=== PATIENT | male | born 1985 | race Caucasian/White ===

== ENCOUNTER 2024-03-17 05:26 | Inpatient (IN) | payer SELFPAY ==
[2024-03-17] VITALS (25 sets, daily range): BP systolic 131–200; BP diastolic 79–141; PULSE 65–87; RESP 12–22; TEMP 35.8–36.7; O2SAT 94–100; BMI 35.6; BMI 36.4
--- NOTE | 2024-03-17 05:54 | EKG12_ITS ---
Test Reason : CP Blood Pressure : / mmHG Vent. Rate : 075 BPM Atrial Rate : 075 BPM P-R Int : 148 ms QRS Dur : 084 ms QT Int : 350 ms P-R-T Axes : -10 045 049 degrees QTc Int : 390 ms Normal sinus rhythm Normal ECG Confirmed by AFIA BORDEN, SANDY ([id number]), editorial assistant JASON BANSAL ([id number]) on 03/23/2024 1:33:01 PM Referred By: QAMAR Confirmed By:SABRINA OREILLY MD
--- NOTE | 2024-03-17 05:54 | CT_ITS ---
INDICATION: chest pain / ? Dissection EXAMINATION: CTA CHEST, ABDOMEN AND PELVIS WITH CONTRAST - TECHNIQUE: A CTA of the chest, abdomen, and pelvis is obtained with sagittal and coronal reconstructed MIP views. Three-dimensional surface rendered sequence of the thoracic and abdominal aorta was obtained. A radiation dose optimization technique was used for this scan. 100 mL of Isovue-370. Oral contrast: None. COMPARISON: None. FINDINGS: CT CHEST: THORACIC AORTA: No atheromatous disease, no aneurysmal changes or dissection. ABDOMINAL AORTA: No aneurysm or dissection. No significant atheromatous disease. The iliac arteries are unremarkable. LUNGS: The lungs are well-expanded without acute or chronic changes. No effusions or pneumothorax. MEDIASTINUM: The thyroid gland is normal. No mediastinal or hilar adenopathy. HEART: Heart is normal size. No pericardial effusion. No CAD. CT ABDOMEN AND PELVIS: LIVER: The liver enhances homogeneously. No masses identified. GALLBLADDER: The CBD is normal. Normal gallbladder. SPLEEN: Normal. PANCREAS: No masses or inflammation. ADRENAL GLANDS: Normal. KIDNEYS AND URETERS: The kidneys both enhance appropriately. There are normal size and shape. No hydronephrosis or nephrolithiasis. No renal masses or cysts. STOMACH: Normal. SMALL BOWEL: No abnormal distention of the small bowel. MESENTERY: No mesenteric inflammation. No ascites. COLON: Scattered sigmoid diverticula. The colon otherwise is normal. There is a large fatty ileocecal valve. APPENDIX: The appendix is visualized and normal. IVC: Normal. RETROPERITONEUM: No retroperitoneal lymphadenopathy. PELVIC STRUCTURES: Normal bladder. SOFT TISSUES ABDOMEN: Small left inguinal hernia containing fat. SOFT TISSUE CHEST: The extrathoracic soft tissues are normal. BONES: No fractures or significant degenerative disease. CT/CTA Chst, Abd, Pel W and/or WO IMPRESSION: Normal contrast-enhanced CT of the chest. Normal contrast-enhanced CT of the abdomen and pelvis. Electronically Signed: Delio Kang MD at 8:22 EDT ,
[2024-03-17] MEDS: Labetalol (Prefilled) 20 MG/4 ML IV (06:01)
[2024-03-17] MEDS: 0.9% Normal Saline (1000mL) 1,000 ML 999 ML IV (06:01)
[2024-03-17 06:06] LABS: Partial Thromboplast Time 22.9 Seconds (24.1-36.2); Prothrombin Time (Protime)PT. 13.3 SECONDS (11.7-14.9)
--- NOTE | 2024-03-17 06:16 | ED.RN ---
Patient's brother Jose J contact number [phone]
[2024-03-17 06:23] LABS: Anion Gap 7 (5-15); BUN 9 mg/dL (7-18); BUN/Creat Ratio 8.5 RATIO (10-20); Calcium,Total 8.8 mg/dL (8.5-10.1); Chloride 107 mmol/L (98-107); Creatinine, Serum 1.06 mg/dL (0.70-1.30); EST Glomerular Filtration Rate 82 mL/min (>60); Est Glom Filt Rate - Afr Amer 99 mL/min (>60); Estimated Creatinine Clearance 116.35 ml/min; Glucose 106 mg/dL (74-106); Magnesium 1.9 mg/dL (1.6-2.6); Potassium 3.5 mmol/L (3.5-5.1); Sodium Level 140 mmol/L (136-145); Troponin-I HS 24 pg/mL (3.0-78.0)
[2024-03-17] MEDS: Nitroglycerin SL (ED/IMG/CATH) 0.4 MG TABLET SL ×3 (06:38→06:54)
--- NOTE | 2024-03-17 06:40 | EX.ED.DYSGE1 ---
HPI History of Present Illness Chief Complaint: Chest Pain Informant: patient Narrative Narrative: Patient is a 38-year-old male with past medical history of hypertension as well as GERD and low testosterone. He reports he takes omeprazole as well as testosterone supplementation but does not take any type of hypertensive medication as he lost his insurance. He states that he woke up this morning as he normally does and got ready for work and reports he was in the car driving to work when he suddenly developed left-sided upper chest discomfort with radiation to his arm. He states the pain is more sharp and stabbing in nature. He reported that it did cause mild shortness of breath. He denies any nausea vomiting or diaphoresis. He denies any previous history of cardiovascular disease. He denies any history of DVT/PE. He denies any history of illicit drug use. He reports based on the sudden onset of his symptoms and concern this could be cardiovascular nature he presents to the ER for evaluation. Of note he does state upon arrival to the ER his symptoms seem to have improved spontaneously but have not resolved [facility] Medical History HTN (hypertension) Home Medications amlodipine 5 mg tablet 5 mg PO DAILY 30 days #30 tabs 03/17/24 [Rx Last Taken Unknown] omeprazole 20 mg capsule,delayed release 20 mg PO DAILY 03/17/24 [History Last Taken Unknown] Allergy/AdvReac Type Severity Reaction Status Date / Time No Known Allergies Allergy Verified 03/17/24 05:26 Social History Smoking Status: Never smoker [facility] ED Constitutional Constitutional ED: Denies chills or fever(s) Eyes Eyes: Denies blurry vision, change in vision or diplopia ENT ENT ED: Denies sore throat Cardiovascular Cardiovascular: Reports chest pain; Denies palpitations or racing heartbeat Respiratory/Chest Respiratory/Chest: Denies cough or dyspnea Gastrointestinal Gastrointestinal: Reports nausea; Denies abdominal pain, diarrhea or vomiting Genitourinary Genitourinary ED: Denies dysuria Musculoskeletal Musculoskeletal: Denies back pain or neck pain Integumentary Denies rash Neurologic Neurologic: Denies headache(s), paresthesias or weakness Hematologic/Lymphatic Hematologic/Lymphatic: Denies easy bleeding or easy bruising EXAM Physical Exam Const Vital Signs: 03/17/24 05:26 03/17/24 05:31 03/17/24 05:32 Temperature 96.5 F L Temperature Source Temporal Pulse Rate 76 Respiratory Rate 15 Respiratory Effort Normal Blood Pressure 196/131 H 200/141 H Blood Pressure Mean 152 160 Pulse Ox 99 03/17/24 06:14 03/17/24 06:38 03/17/24 06:44 Temperature Temperature Source Pulse Rate 85 77 78 Respiratory Rate 17 Respiratory Effort Blood Pressure 174/126 H 186/123 H 154/110 H Blood Pressure Mean 142 Pulse Ox 98 03/17/24 06:54 Temperature Temperature Source Pulse Rate 81 Respiratory Rate Respiratory Effort Blood Pressure 161/105 H Blood Pressure Mean Pulse Ox Positive well nourished and well developed General Appearance ED: well developed; Negative for pallor HEENT HEENT Narrative: Normocephalic atraumatic Eyes PERRL and EOMs intact bilaterally General Eye ED: Negative for pale conjunctiva or scleral icterus Neck supple Neck Narrative: No nuchal rigidity or meningeal signs Chest Wall palpation of chest normal Chest Narrative: No bony deformity or crepitance of the chest wall No reproducible pain with palpation Resp normal respiratory effort and clear to auscultation bilaterally Resp Narrative: No nasal flaring retractions tachypnea or accessory muscle use Cardio regular rate and regular rhythm Rate: other Other Details: Heart is regular rate and rhythm without murmurs rubs or gallop Radial and carotid pulses are equal and symmetric GI normal to inspection, nondistended, normoactive bowel sounds, non-tender, non-distended and no masses GI Narrative: Abdomen is soft nontender nondistended with normal active bowel sounds No voluntary guarding or rigidity No pulsatile mass or fluid wave Auscultation: normoactive bowel sounds Palpation: soft Extremity normal to inspection Extremity Narrative: No asymmetric edema no pitting edema negative Homans' sign bilaterally Neuro oriented x3, CN's II-XII intact bilaterally and no sensory deficits noted Sensorium / Orientation: alert Motor Exam: strength 5/5 throughout Psych mental status grossly normal Skin no rashes or lesions noted, no wounds and skin turgor normal General Skin Exam: Negative for jaundice or pallor MDM MDM MDM Narrative Medical decision making narrative: Patient presented to the ER hypertensive but otherwise with stable vital. He reported sudden onset of left-sided chest discomfort with radiation into the left arm. He stated the pain was more sharp in nature. He denied any recent trauma or excessive activity. He does have mild risk factors for cardiovascular disease such as a man of the age of 38 as well as hypertension and occasional nicotine use. He denied any history of DVT/PE but he did recently fly to [place] from [place] and takes testosterone/hormone. Therefore there is concern that he could be having acute coronary syndrome versus DVT/PE versus dissection. Secondary to this a CTA of the chest abdomen pelvis was obtained as well as basic blood work. The patient's initial troponin is normal at 24. His EKG does not show any obvious signs of ischemia/STEMI. My interpretation of the CTA does not reveal a saddle PE or obvious dissection. Therefore there is concern that the patient's pain could just be related to accelerated hypertension and potential vessel spasm secondary to this. Patient was given labetalol without any symptom improvement so then a nitro trial was performed and did lower the patient's blood pressure to approximate 150/110 which is at the 25% reduction rate and for in the ER At this time the patient's delta troponin is still pending and therefore his case will be signed out to the day physician Dr. Hull I do feel that if CTA is officially read as no PE or dissection and that his troponins remain normal as his blood pressure has reduced the except to ER value of 25% that he can be given oral medication and discharged home History & Record Review Discussion w/independent historian: Patient Lab Data Attestation: I reviewed the patient's lab results. Labs: Laboratory Results - last 24 hr 03/17/24 05:47 WBC 7.3 RBC 5.51 Hgb 16.2 Hct 50.4 MCV 91.5 MCH 29.4 MCHC 32.1 RDW Std Deviation 50.2 H RDW Coeff of Zan 14.9 H Plt Count 310 MPV 9.5 Immature Gran % (Auto) 0.700 Neut % (Auto) 57.2 Lymph % (Auto) 28.7 [place] % (Auto) 8.7 Eos % (Auto) 3.7 Baso % (Auto) 1.0 Absolute Neuts (auto) Not Reportable PT 13.3 INR 1.0 APTT 22.9 L Sodium 140 Potassium 3.5 Chloride 107 Carbon Dioxide 26.0 Anion Gap 7 BUN 9 Creatinine 1.06 Estim Creat Clear Calc 116.35 Est GFR (MDRD) Af Amer 99 Est GFR (MDRD) Non-Af 82 BUN/Creatinine Ratio 8.5 L Glucose 106 Calcium 8.8 Magnesium 1.9 Troponin I High Sens 24 Discharge Plan Triage Chief Complaint: Chest Pain ED Provider: Mark Richardson Dx/Rx/DC Orders Clinical Impression: Nonspecific chest pain, Accelerated hypertension Prescriptions: New amlodipine 5 mg tablet 5 mg PO DAILY 30 Days Qty: 30 2RF No Action omeprazole 20 mg capsule,delayed release(DR/EC) 20 mg PO DAILY Primary Care Provider: Care Physician,No Primary Referrals: Skinny Chapman MD [Med Staff - Active Staff] - Care Physician,No Primary [Primary Care Provider] -
[2024-03-17] MEDS: Acetaminophen 500 MG Tablet 1000 MG PO (06:50)
[2024-03-17 06:56] LABS: Hematocrit 50.4 % (40-54); Hemoglobin 16.2 g/dL (13.0-16.5); Mean Corp Hgb Conc 32.1 g/dL (32-36); Mean Corpuscular Hgb 29.4 pg (27.0-32.0); Mean Corpuscular Volume 91.5 fL (80-94); Platelet Count 310 K/mm3 (150-450); RBC Distribution Width CV 14.9 % (11.6-14.6); RBC Distribution Width SD 50.2 fl (35.1-43.9); Red Blood Count 5.51 M/mm3 (4.6-6.2); White Blood Count 7.3 K/mm3 (4.4-11.0)
[2024-03-17 06:57] LABS: Eosinophils% 3.7 % (0-5); Lymphocyte % 28.7 % (19-41); Mean Platelet Vol. 9.5 fl (6.2-12.0); Monocyte% 8.7 % (0-10); Neutrophil % 57.2 % (47-70)
[2024-03-17 06:58] LABS: Basophil# 0.07 X10^3/uL; Eosinophil# 0.27 X10^3/uL; Lymphocyte # 2.08 X10^3/ul (0.83-4.51); Monocyte# 0.63 X10^3/uL; Neutrophil # 4.15 X10^3/uL (2.7-7.7)
[2024-03-17 08:16] LABS: Troponin-I HS 561 pg/mL (3.0-78.0)
--- NOTE | 2024-03-17 08:31 | EKG12_ITS ---
Test Reason : REPEAT Blood Pressure : / mmHG Vent. Rate : 065 BPM Atrial Rate : 065 BPM P-R Int : 146 ms QRS Dur : 084 ms QT Int : 366 ms P-R-T Axes : -17 033 019 degrees QTc Int : 380 ms Normal sinus rhythm Normal ECG Confirmed by AFIA BORDEN, SANDY ([id number]), staff editor JASON BANSAL ([id number]) on 03/23/2024 1:33:16 PM Referred By: Confirmed By:SABRINA OREILLY MD
[2024-03-17] MEDS: TICAGRELOR 90 MG TABLET 180 MG PO (09:21)
[2024-03-17] MEDS: Heparin 10,000 UNITS/10 ML Vial 4000 UNITS IV (09:22)
[2024-03-17] MEDS: Nitroglycerin Infusion 250 ML 3 MG CONT INF (09:22)
--- NOTE | 2024-03-17 09:26 | ED.RN ---
PT VERIFIED. UNABLE TO SCAN THE ASPIRIN DUE TO BEING LOCKED OUT BY LSPARR RN. 325 ASA GIVEN AT [id number]
--- NOTE | 2024-03-17 11:36 | ECHOD_ITS ---
Reason For Study: NSTEMI Procedure This was a 2D Doppler, Color Flow transthoracic echocardiogram. Exam performed portable in ICU/CCU. Left Ventricle Normal LV size. The estimated ejection fraction is 50-55 %. No evidence for diastolic dysfunction. No regional wall motion abnormalities noted. Right Ventricle Normal RV size. Normal systolic function. Atria Normal left atrium. Normal right atrium. No doppler evidence for ASD. Mitral Valve There is no mitral valve stenosis. Trivial mitral valve insufficiency. Tricuspid Valve There is no tricuspid stenosis. Trivial tricuspid valve insufficiency. Unable to estimate RV systolic pressure due to insufficient tricuspid regurgitant envelope. Aortic Valve Trisinus/trileaflet aortic valve. There is no aortic stenosis. No aortic valve insufficiency. Pulmonic Valve There is no pulmonic valvular stenosis. No pulmonic valve insufficiency. Great Vessels Normal aortic root. Pericardium/Pleural No pericardial effusion. MMode/2D Measurements & Calculations LVIDd: 5.2 cm IVSd: 1.5 cm Ao root diam: 3.6 cm LVIDs: 3.8 cm LVPWd: 1.0 cm LA dimension: 4.2 cm RVDd: 4.0 cm FS: 27.0 % LAV(MOD-bp): 66.9 ml LA A4 area: 23.6 cm2 RA A4 area: 19.7 cm2 LAV(MOD-bp) Indexed: 29.2 ml/m2 LAV(MOD-sp2): 51.3 ml LAV(MOD-sp4): 76.5 ml TAPSE: 2.3 cm Time Measurements MV dec time: 0.20 sec Doppler Measurements & Calculations MV E max wyatt: 77.0 cm/sec Lat Peak E' Wyatt: 9.3 cm/sec Med Peak E' Wyatt: 9.1 cm/sec MV A max wyatt: 80.8 cm/sec E/E' lat: 8.3 E/E' med: 8.5 MV E/A: 0.95 MV V2 max: 96.9 cm/sec MV P1/2t max wyatt: 92.8 cm/sec Ao V2 max: 131.0 cm/sec MV max P.8 mmHg MV P1/2t: 74.7 msec Ao max P.9 mmHg MV V2 mean: 60.7 cm/sec Ao V2 mean: 93.9 cm/sec MV mean P.7 mmHg MV dec slope: 363.9 cm/sec2 Ao mean P.0 mmHg MV V2 VTI: 26.4 cm MVA(P1/2t): 2.9 cm2 Ao V2 VTI: 27.2 cm AV (velocity ratio): 0.85 LV V1 max: 109.5 cm/sec PA V2 max: 82.6 cm/sec TR max wyatt: 177.9 cm/sec LV V1 max P.8 mmHg PA V2 mean: 56.7 cm/sec TR max P.7 mmHg LV V1 mean P.8 mmHg LV V1 mean: 79.4 cm/sec LV V1 VTI: 23.1 cm ECHO/Echo Complete Interpretation Summary The estimated ejection fraction is 50-55 %. No evidence for diastolic dysfunction. Trivial mitral valve insufficiency. Ordering Physician: William Lugo Performed By: Constantine Daugherty RCS
--- NOTE | 2024-03-17 11:36 | EKG12_ITS ---
Test Reason : post cath ekg Blood Pressure : / mmHG Vent. Rate : 071 BPM Atrial Rate : 071 BPM P-R Int : 152 ms QRS Dur : 078 ms QT Int : 358 ms P-R-T Axes : -19 036 024 degrees QTc Int : 389 ms Normal sinus rhythm Normal ECG Confirmed by GUANACO BORDEN, AYANNA ([id number]), supervising film or videotape editor JASON BANSAL ([id number]) on 03/26/2024 11:41:59 AM Referred By: Elif Confirmed By:AYNANA BLANC MD
--- NOTE | 2024-03-17 11:49 | CRPHASE1 ---
Patient Communication Patient Information Former Patient:: Phase I PHII Cardiac Rehab Discussed with Patient:: Yes Guide to Cardiac Rehab Given to Patient:: Yes Cardiac Rehab Facility Choice List Given to Patient:: Yes Communication to Cardiac Rehab Forming Department Supervisor:: María Elena Asencio Sessions:: 36 sessions - 3 days/wk, 12 weeks Medical/Surgical History Medical History IN:: Yes Angina:: No CAD:: Yes Congestive Heart Failure: Cardiomyopathy:: No Valve Disease/Replacement:: No Pulmonary:: No COPD:: No Asthma:: No ANA:: No Diabetes:: No Diabetes Type I:: No Diabetes Type II:: No Hypertension:: Yes Dyslipidemia:: No Arrhythmias:: No EPS:: No CVA/TIA: CEA:: No PE:: No DVT:: No PVD:: No PAD:: No Arthritis:: No GI:: No GERD:: No Cancer:: No Renal:: No Thyroid:: No Depression:: No Anxiety:: No Surgical History CABG: No PTCA:: Yes ICD:: No Pacemaker:: No Orthopedic:: No Cardiac Rehabilitation Info Program Information Cardiac Rehabilitation Program Information: Cardiac Rehab The cardiac rehab team at [facility] consists of highly skilled exercise physiologists, nurses, respiratory therapists and physicians working together with you. Our purpose is to help you have a full recovery and achieve the goals you set for yourself. Over the years many of our patients have returned to activities they assumed they would never do again! We can help restore your confidence and motivation to make lifestyle changes that can have a significant impact on your health and quality of life! We can help answer questions and concerns you may have about exercise, lifestyle, medications, diet, stress and anxiety which are common following a hospitalization. WE monitor ECG and vital signs during exercise and discuss your progress with you and report to your physician(s). Cardiac Rehab is proven to help reduce readmissions, improve functional capacity and lower recurrence of problems with your heart. Our Cardiac Rehab program is Certified by the [place] [employer] Pulmonary [employer] (AACVPR) and Accredited by the [place] [employer] through our [facility]. You can contact us at . We invite you to call us with your questions or to get started in our program. If you have other questions or concerns be sure to ask your physician/provider during your follow-up visit. WE look forward to seeing you!
--- NOTE | 2024-03-17 11:51 | CRPH1.INSTRU ---
General Education Discussed with Patient CAD and cardiac anatomy and function:: Patient communicates acknowledgment Explanation of diagnoses and procedures:: Patient communicates acknowledgment Sign/Symptoms of PR:: Patient communicates acknowledgment Antiplatelet therapy: Patient communicates acknowledgment Proper use of NTG-SL: Patient communicates acknowledgment Emergency procedures and activation of EMS: Patient communicates acknowledgment Compliance of all prescribed medications: Patient communicates acknowledgment Dyslipidemia Recommendations Recommendations Include:: Lipid profile not available Response Code Dyslipidemia Response Code:: Patient communicates acknowledgment Overweight/Obesity Risk Factors Patient Overweight/Obesity Risk Factors Are:: Obesity - > or = 30 Recommendations Recommendations Include:: Reduced calorie diet Response Code Overweight/Obesity:: Patient communicates acknowledgment Hypertension Recommendations Recommendations Include:: Maintain BP <130/85, Decrease/maintain normal body weight and Moderation of ETOH Response Code Hypertension:: Patient communicates acknowledgment Heart Disease Risk Factors Patient Heart Disease Risk Factors Are:: Previous cardiac event Recommendations Recommendations Include:: Educated family members of their risk and Educated family members of importance of prevention of heart disease Response Code Heart Disease Response Code:: Patient communicates acknowledgment Diabetes Risk Factors Patient Diabetes Risk Factors Are:: No documented hx of diabetes Metabolic Syndrome Risk Factors Patient Metabolic Syndrome Risk Factors Are [3 of 5]:: Waist circumference > 35 [female] or 40 [male] and Hypertension Recommendations Recommendations Include:: Reinforce compliance to risk factor modifications and Encouraged follow-up with Primary Care Physician Response Code Metabolic Syndrome Response Code:: Patient communicates acknowledgment Sedentary Risk Factors Patient Sedentary Risk Factors Are:: Lack of regular exercise Response Code Sedentary Response Code:: Patient communicates acknowledgment Stress Risk Factors Patient Stress Risk Factors Are:: Patient denies stress as a risk factor Recommendations Recommendations Include:: Identification of stressors, and assessment of coping skills and Stress management techniques Response Code Stress Response Code:: Patient communicates acknowledgment
--- NOTE | 2024-03-17 12:00 | NURSING ---
Per Vikki in analytical lab technician report, integrilin bolus doses x2 given and drip started. When patient arrived to floor, integrilin gtt running at 17.2 ml/hr.
[2024-03-17] MEDS: Carvedilol 12.5 MG Tablet PO ×2 (12:24→21:06)
[2024-03-17] MEDS: 0.9% Normal Saline (1000mL) 1,000 ML 50 ML IV (12:24)
[2024-03-17] MEDS: Pantoprazole Sodium 20 MG Tablet PO (12:24)
[2024-03-17] MEDS: Aspirin 325 MG Tablet PO (12:36)
[2024-03-17] MEDS: Lisinopril 10 MG Tablet PO ×2 (12:36→17:38)
--- NOTE | 2024-03-17 12:42 | NURSING ---
called labor relations supervisor to locate Dr. Asencio regarding Integrilin orders, per Adriana labor relations supervisor RN, Dr. Asencio not in labor relations supervisor.
[2024-03-17] MEDS: EPTIFIBATIDE 75 MG/100 ML VIAL 18 MG CONT INF ×2 (15:19→21:02)
--- NOTE | 2024-03-17 15:37 | PCM.HP.STD ---
[facility] - General General Date of Admission: 03/17/24 Date of Service: 03/17/24 Chief Complaint: Left-sided chest pain with radiation to left arm started about 5 AM HPI Narrative CRISTIAN WILLIS, is a 38 M with history of uncontrolled hypertension came to ED when he felt chest pressure left side with radiation to left arm while he was getting ready for work. 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 Then he came to ED pain was persistent till nitro drip was started and brought to [facility] Of Human Resources. Prior to that patient also complained of mild shortness of breath denied nausea vomiting diaphoresis or palpitation. No prior history of similar chest pain or pressure or [place]. History of hypertension on amlodipine 5 mg daily. In ED patient had twelve-lead EKG which shows normal sinus rhythm at 75 bpm, slight ST segment elevation in inferior leads with reciprocal changes in V4 and V5. First troponin negative but second troponin went high. Patient was started on IV heparin drip given aspirin and taken to [facility] Of Human Resources. Patient also had CTA chest and pelvis and aortic dissection/aneurysm or PE ruled out. Family history: Patient's mother has hypertension. His father had a strokes and [place]. [facility], LAT[facility] Medical History HTN (hypertension) Smoking Home Medications amlodipine 5 mg tablet 5 mg PO DAILY 30 days #30 tabs 03/17/24 [Rx Last Taken Unknown] omeprazole 20 mg capsule,delayed release 20 mg PO DAILY 03/17/24 [History Last Taken Unknown] Allergy/AdvReac Type Severity Reaction Status Date / Time No Known Allergies Allergy Verified 03/17/24 05:26 Social History Smoking Status: Current some day smoker tobacco type: cigarettes ROS ROS Narrative Constitutional: Denies chronic fatigue and weakness. No fever. HEENT: Reports systems reviewed and no addt'l complaints, except as documented Respiratory/Chest: As described in HPI. No chronic lung disease/COPD CVS: As described in HPI. Gastrointestinal: Denies coffee ground emesis, hematemesis or vomiting Genitourinary: Denies burning urination or new urinary tract symptoms Musculoskeletal: Denies acute joint pain or limited range of motion. No acute injury Neurologic: Denies seizure-like symptoms. skin: No ulcer. No rash Endocrinology: Reports systems reviewed and no addt'l complaints, except as documented Hematologic/Lymphatic: Reports systems reviewed and no addt'l complaints, except as documented Rest 14 ROS are negative except as mentioned in HPI Vital Signs Vital Signs Vital Signs: 03/17/24 05:26 03/17/24 05:31 03/17/24 05:32 Temperature 96.5 F L Temperature Source Temporal Pulse Rate 76 Respiratory Rate 15 Respiratory Effort Normal Blood Pressure 196/131 H 200/141 H Blood Pressure Mean 152 160 Blood Pressure Source Blood Pressure Position Blood Pressure Location Pulse Ox 99 Oxygen Delivery Method 03/17/24 06:14 03/17/24 06:38 03/17/24 06:44 Temperature Temperature Source Pulse Rate 85 77 78 Respiratory Rate 17 Respiratory Effort Blood Pressure 174/126 H 186/123 H 154/110 H Blood Pressure Mean 142 Blood Pressure Source Blood Pressure Position Blood Pressure Location Pulse Ox 98 Oxygen Delivery Method 03/17/24 06:54 03/17/24 07:00 03/17/24 08:00 Temperature Temperature Source Pulse Rate 81 65 69 Respiratory Rate 16 17 Respiratory Effort Blood Pressure 161/105 H 151/103 H 153/102 H Blood Pressure Mean 119 119 Blood Pressure Source Blood Pressure Position Blood Pressure Location Pulse Ox 96 98 Oxygen Delivery Method Room Air 03/17/24 09:00 03/17/24 09:22 03/17/24 09:31 Temperature 98.1 F Temperature Source Pulse Rate 72 74 80 Respiratory Rate 19 H 18 Respiratory Effort Blood Pressure 156/103 H 160/106 H 166/107 H Blood Pressure Mean 120 124 126 Blood Pressure Source Blood Pressure Position Blood Pressure Location Pulse Ox 94 98 Oxygen Delivery Method Room Air 03/17/24 12:00 03/17/24 11:45 03/17/24 12:15 Temperature 97.0 F L Temperature Source Temporal Pulse Rate 86 78 78 Respiratory Rate 22 H 19 H 18 Respiratory Effort Blood Pressure 147/98 H 131/104 H 138/98 H Blood Pressure Mean 114 113 111 Blood Pressure Source Monitor Monitor Monitor Blood Pressure Position Semi-Fowlers Semi-Fowlers Semi-Fowlers Blood Pressure Location Left Arm Left Arm Left Arm Pulse Ox 98 99 97 Oxygen Delivery Method Room Air Room Air Room Air 03/17/24 12:30 03/17/24 12:45 03/17/24 13:00 Temperature Temperature Source Pulse Rate 76 76 77 Respiratory Rate 16 18 12 Respiratory Effort Blood Pressure 147/98 H 143/98 H 153/99 H Blood Pressure Mean 114 113 117 Blood Pressure Source Monitor Monitor Monitor Blood Pressure Position Semi-Fowlers Semi-Fowlers Semi-Fowlers Blood Pressure Location Left Arm Left Arm Left Arm Pulse Ox 100 100 98 Oxygen Delivery Method Room Air Room Air Room Air 03/17/24 13:15 Temperature Temperature Source Pulse Rate 87 Respiratory Rate 17 Respiratory Effort Blood Pressure 141/98 H Blood Pressure Mean 112 Blood Pressure Source Monitor Blood Pressure Position Semi-Fowlers Blood Pressure Location Left Arm Pulse Ox 98 Oxygen Delivery Method Room Air Weight Weight: 253 lb 15.56 oz Body Mass Index (BMI) 36.4 Results Lab / Micro Data 03/17/24 05:47 03/17/24 05:47 Labs: Laboratory Results - last 24 hr 03/17/24 05:47: WBC 7.3, RBC 5.51, Hgb 16.2, Hct 50.4, MCV 91.5, MCH 29.4, MCHC 32.1, RDW Std Deviation 50.2 H, RDW Coeff of Zan 14.9 H, Plt Count 310, MPV 9.5, Immature Gran % (Auto) 0.700, Neut % (Auto) 57.2, Lymph % (Auto) 28.7, [place] % (Auto) 8.7, Eos % (Auto) 3.7, Baso % (Auto) 1.0, Absolute Neuts (auto) Not Reportable, PT 13.3, INR 1.0, APTT 22.9 L, Sodium 140, Potassium 3.5, Chloride 107, Carbon Dioxide 26.0, Anion Gap 7, BUN 9, Creatinine 1.06, Estim Creat Clear Calc 116.35, Est GFR (MDRD) Af Amer 99, Est GFR (MDRD) Non-Af 82, BUN/Creatinine Ratio 8.5 L, Glucose 106, Calcium 8.8, Magnesium 1.9, Troponin I High Sens 24 03/17/24 07:45: Phosphorus 3.0, Troponin I High Sens 561 H* Imaging Radiology Impression Chest/Abdomen/Pelvis CTA 03/17/24 05:54 IMPRESSION: Normal contrast-enhanced CT of the chest. Normal contrast-enhanced CT of the abdomen and pelvis. Electronically Signed: Delio Kang MD at 8:22 EDT , Assessment & Plan Assessment/Plan (1) Accelerated hypertension: (2) NSTEMI, initial episode of care: PLAN: Plan This is 38-year-old gentleman came to ED with anginal quality chest pain left-sided with radiation to left arm and high troponin consistent with non-STEMI 1. Acute Non-STEMI: Patient is being admitted in ICU after Manager Of Human Resources procedure.In ED patient had aspirin 325, IV heparin bolus, labetalol IV for uncontrolled BP. Discussed with the electronic equipment repairer. Patient was found to have RCA blockage and its branch. PTCA/JULES to proximal RCA. Patient on IV Integrilin drip. On aspirin, Brilinta, carvedilol lisinopril and high intensity statin. On surveillance monitor patient is sinus rhythm. Fasting lipid profile, TSH ordered for tomorrow AM. 2D echo ordered. 2. Accelerated uncontrolled hypertension: Patient BP was systolic 200 and had labetalol in ED. Started on lisinopril 10 mg daily. Patient knows his blood pressure is uncontrolled. Currently his BP is systolic 140s. Monitor and titrate antihypertensive medication accordingly. 3. Obesity grade 2: BMI 36.4 kg/m?. Weight loss counseling done. 4. DVT prophylaxis, moderate to high risk: Lovenox 40 g subcu daily from tomorrow AM. Advanced directive/living will: Patient does not have advanced directive or living will. Advised to prepare it with help of PCP. Currently full code. Charges/Coding Visit Charges Inpatient E&M: 59418 Init Hosp L3
[2024-03-17] MEDS: TICAGRELOR 90 MG TABLET PO (21:06)
[2024-03-17] MEDS: Atorvastatin Calcium 80 MG Tablet PO (21:06)
--- NOTE | 2024-03-17 21:33 | CON.PCM.CA_ITS ---
Assessment & Plan Assessment/Plan (1) NSTEMI, initial episode of care: PLAN: Patient was treated with drug-eluting stent to the mid RCA. He also had thrombectomy to the mid RCA and branch of the RPDA. We will keep the patient on Coreg, lisinopril, aspirin, Brilinta, statin. Will also keep him on Integrilin overnight. HPI Consult Data Date of Consult: 03/17/24 HPI Narrative Reason for Consultation: Chest pain, non-STEMI HPI Narrative: CRISTIAN WILLIS, is a 38 M who presents with chest pain. His troponin was elevated and he was brought to the cardiac Document Advisor for coronary angiography which revealed thrombus in the mid RCA with distal embolization to a branch of the PDA. He was treated with thrombectomy and drug-eluting stent placement to the mid RCA. Thrombectomy and PTCA alone was done to the branch of the RPDA. Patient was chest pain-free at the end of the procedure. Since there was distal embolization patient is being treated with Integrilin overnight. Review of systems: All systems reviewed. All else is negative except that in HPI PFSH Medical History HTN (hypertension) Smoking Home Medications amlodipine 5 mg tablet 5 mg PO DAILY 30 days #30 tabs 03/17/24 [Rx Last Taken Unknown] omeprazole 20 mg capsule,delayed release 20 mg PO DAILY 03/17/24 [History Last Taken Unknown] Allergy/AdvReac Type Severity Reaction Status Date / Time No Known Allergies Allergy Verified 03/17/24 05:26 Social History Smoking Status: Current some day smoker tobacco type: cigarettes Physical Exam Const alert and oriented x3 HEENT normocephalic Eyes no scleral icterus Resp normal respiratory effort Skin no rashes or lesions noted Psych mental status grossly normal Risk Stratification Risk Stratification Applicable: No Charges/Coding Visit Charges Inpatient E&M: 19584 Init Hosp L2 Objective Data Vital Signs: Vital Signs Temp Pulse Resp BP Pulse Ox O2 Del Method 98.1 F 79 16 158/108 H 98 Room Air 03/17/24 21:15 03/17/24 21:15 03/17/24 21:15 03/17/24 21:15 03/17/24 21:15 03/17/24 21:15 Oxygen Delivery Method Room Air Weight: 253 lb 15.56 oz Body Mass Index (BMI) 36.4 Intake & Output: Intake and Output for Last 24 Hours 03/15/24 03/16/24 03/17/24 23:59 23:59 23:59 Intake Total 1966.58 / 1966.58 Output Total 2200 / 2200 Balance -233.42 / -233.42 Lab / Micro Data 03/17/24 05:47 03/17/24 05:47 Labs: Laboratory Results - last 24 hr 03/17/24 05:47: WBC 7.3, RBC 5.51, Hgb 16.2, Hct 50.4, MCV 91.5, MCH 29.4, MCHC 32.1, RDW Std Deviation 50.2 H, RDW Coeff of Zan 14.9 H, Plt Count 310, MPV 9.5, Immature Gran % (Auto) 0.700, Neut % (Auto) 57.2, Lymph % (Auto) 28.7, [place] % (Auto) 8.7, Eos % (Auto) 3.7, Baso % (Auto) 1.0, Absolute Neuts (auto) Not Reportable, PT 13.3, INR 1.0, APTT 22.9 L, Sodium 140, Potassium 3.5, Chloride 107, Carbon Dioxide 26.0, Anion Gap 7, BUN 9, Creatinine 1.06, Estim Creat Clear Calc 116.35, Est GFR (MDRD) Af Amer 99, Est GFR (MDRD) Non-Af 82, BUN/Creatinine Ratio 8.5 L, Glucose 106, Calcium 8.8, Magnesium 1.9, Troponin I High Sens 24 03/17/24 07:45: Phosphorus 3.0, Troponin I High Sens 561 H* Cardiology Labs/Tests 03/17/24 05:47: WBC 7.3, RBC 5.51, Hgb 16.2, Hct 50.4, MCV 91.5, MCH 29.4, MCHC 32.1, Plt Count 310, MPV 9.5, Immature Gran % (Auto) 0.700, Neut % (Auto) 57.2, Lymph % (Auto) 28.7, [place] % (Auto) 8.7, Eos % (Auto) 3.7, Baso % (Auto) 1.0, Absolute Neuts (auto) Not Reportable, PT 13.3, INR 1.0, APTT 22.9 L, Sodium 140, Potassium 3.5, Chloride 107, Carbon Dioxide 26.0, Anion Gap 7, BUN 9, Creatinine 1.06, Est GFR (MDRD) Af Amer 99, Est GFR (MDRD) Non-Af 82, BUN/Creatinine Ratio 8.5 L, Glucose 106, Calcium 8.8, Magnesium 1.9 03/17/24 07:45: Phosphorus 3.0 Rhythm: EKG: ECHO: Stress Test: Cardiac Cath: PCI: CT Surgery: Holter monitor: EPS: PPM: CXR: Chest CT Scan: Radiography Diagnostic Testing: Radiology Impression Chest/Abdomen/Pelvis CTA 03/17/24 05:54 IMPRESSION: Normal contrast-enhanced CT of the chest. Normal contrast-enhanced CT of the abdomen and pelvis. Electronically Signed: Delio Kang MD at 8:22 EDT ,
[2024-03-18] MEDS: EPTIFIBATIDE 75 MG/100 ML VIAL 18 MG CONT INF (02:36)
[2024-03-18 03:15] VITALS: BP 143/95; PULSE 74; RESP 14; TEMP 36.4; O2SAT 96
[2024-03-18 06:00] VITALS: BP 143/95; PULSE 90; RESP 15; TEMP 36.4; O2SAT 97
[2024-03-18 07:03] LABS: Hematocrit 49.7 % (40-54); Hemoglobin 16.4 g/dL (13.0-16.5); Mean Corpuscular Hgb 29.8 pg (27.0-32.0); Mean Corpuscular Volume 90.4 fL (80-94); Mean Platelet Vol. 9.6 fl (6.2-12.0); Platelet Count 283 K/mm3 (150-450); RBC Distribution Width CV 14.7 % (11.6-14.6); RBC Distribution Width SD 48.7 fl (35.1-43.9); White Blood Count 7.8 K/mm3 (4.4-11.0)
[2024-03-18 07:51] LABS: ALB/GLOB Ratio 0.8 RATIO (0.9-2.4); AST(SGOT) 96 U/L (15-37); Alanine Aminotransfer ALT/SGPT 51 U/L (16-61); Albumin, Serum 3.1 g/dL (3.2-5.0); Alkaline Phosphatase 75 U/L (45-117); Anion Gap 4 (5-15); BUN 7 mg/dL (7-18); BUN/Creat Ratio 8.2 RATIO (10-20); Calcium,Total 8.3 mg/dL (8.5-10.1); Chloride 110 mmol/L (98-107); Cholesterol 186 mg/dL (200); Creatinine, Serum 0.85 mg/dL (0.70-1.30); EST Glomerular Filtration Rate 105 mL/min (>60); Est Glom Filt Rate - Afr Amer 127 mL/min (>60); Estimated Creatinine Clearance 146.86 ml/min; Globulin 3.8 g/dL (2.2-4.2); Glucose 107 mg/dL (74-106); High Density Lipoprotein 82 mg/dL; Potassium 3.8 mmol/L (3.5-5.1); Protein, Total 6.9 g/dL (6.4-8.2); Sodium Level 137 mmol/L (136-145); Thyroid Stim Hormone (TSH) 2.94 uIU/mL (0.358-3.74); Triglycerides 193 mg/dL; Very Low Density Lipoprotein 39 mg/dL (5-40)
[2024-03-18] MEDS: TICAGRELOR 90 MG TABLET PO (09:23)
[2024-03-18] MEDS: Lisinopril 10 MG Tablet PO (09:24)
[2024-03-18] MEDS: Carvedilol 12.5 MG Tablet PO (09:24)
[2024-03-18] MEDS: Pantoprazole Sodium 20 MG Tablet PO (09:24)
[2024-03-18] MEDS: Aspirin E.C. 81 MG Tablet PO (09:24)
--- NOTE | 2024-03-18 10:00 | EKG12_ITS ---
Test Reason : Blood Pressure : / mmHG Vent. Rate : 083 BPM Atrial Rate : 083 BPM P-R Int : 152 ms QRS Dur : 078 ms QT Int : 360 ms P-R-T Axes : 002 025 024 degrees QTc Int : 423 ms Normal sinus rhythm Borderline ECG When compared with ECG of 17-MAR-2024 12:07, MANUAL COMPARISON REQUIRED, DATA IS UNCONFIRMED Reconfirmed by GUANACO BORDEN, AYANNA ([id number]), editorial writer ROBERT MARCOS ([id number]) on 03/23/2024 9:59:32 AM Referred By: Confirmed By:AYANNA BLANC MD
--- NOTE | 2024-03-18 10:07 | DCINST_ITS ---
Discharge Instructions Diet Discharge Diet: Low fat / Low cholesterol and 2000 mg Sodium Diet Activity Discharge Activity: Return to Normal Activity Weight Bearing Status: Weight bearing as tolerated Dressing / Incision Call your doctor if you observe: Fever of 101 or Higher, Coldness, Increased Pain, Numbness or Tingling, Change in Color, Inability to urinate, Inability to have a bowel movement, Shortness of breath, Dizziness, Fainting spells, Swelling in the ankles, Chest pain, Prolonged hiccupping, Increased palpitations (irregular heartbeat) and Calf discomfort Follow Up Care When: IN 2 WEEKS Test Results: Test results from this visit will be discussed in further detail at your follow- up appointment, if applicable. Discharge Plan Admission Admit Date/Time: 03/17/24 09:54 Primary Reason for Your Visit: NSTEMI Attending Provider: María Elena Asencio Primary Care Provider: Care Physician,Ariella Primary Discharge Orders/Prescriptions Prescriptions: New amlodipine 5 mg tablet 5 mg PO DAILY 30 Days Qty: 30 2RF carvedilol 12.5 mg Tablet 12.5 mg PO BID 30 Days Qty: 60 2RF aspirin 81 mg Tablet,Delayed Release (Dr/Ec) 81 mg PO BREAKFAST 30 Days Qty: 30 4RF Brilinta 90 mg Tablet 90 mg PO BID Qty: 60 3RF lisinopril 20 mg tablet 20 mg PO DAILY 30 Days Qty: 30 3RF Rx Instructions: Hold for SBP less than 130 mmHg atorvastatin 40 mg tablet 40 mg PO QHS 30 Days Qty: 30 4RF nitroglycerin 0.4 mg tablet, sublingual 0.4 mg sublingual Q5M PRN (Reason: chest pain) Qty: 30 0RF Rx Instructions: do not exceed 3 doses per episode Continued omeprazole 20 mg capsule,delayed release(DR/EC) 20 mg PO DAILY Referrals / Follow Up: Cj Lubin MD [Med Staff - Active Staff] - Within 2 Weeks (nstemi) Skinny Chapman MD [Med Staff - Active Staff] - Care Physician,No Primary [Primary Care Provider] - Disposition Disposition (needs filled in before D/C Order can be placed): Home, Self Care
--- NOTE | 2024-03-18 10:58 | CASEMGMT ---
RIGOBERTO BLAND Assessment Face to Face with patient for initial transition planning/care coordination assessment. RIGOBERTO BLAND introduced self and role at [facility], pt voices understanding. Pt is A&Ox4 and is resting comfortably in bed and is calm. Pt at bedside. Care providers, pharmacy, and demographics verified. Admitting dx: VITA GAMBINO Strata: 2 PCP: No PCP. Pt is from [place] and is around this area for work. Pt declined PCP list and states he will get this set up once he returns home. Specialists: Denies Preferred Pharmacy: [facility] during this stay Insurance: Pt is self pay. Pt states that a financial management came and talked to him and his in the room for resources regarding this. Pt states that he has an appt set up with [email or web address]. Pt states I make too much money to qualify for any help here. SW is aware as well. Prescription Benefit: None LNOK: Ila Strange () Living Arrangements: Pt lives in [place] and is in this area for work purposes. Pt states that his home in [place] is a single level home with a flat entrance. ADLs/IADLs: Ind Transportation: Self, DME: [employer]. Denies all other DME uses or needs HHC/SNF: Denies history or needs Pt?s goal: Home no needs Plan: Pt states that once he is medically cleared he plans to return to work and then return to [place] in 19 days. Pt denies the need for HHC or OP therapy. CM to follow for safe DC from [facility]. Maynor Norton RN, CM
--- NOTE | 2024-03-18 12:20 | PCM.DC.SUM ---
Providers Date of Admission: 03/17/24 Date of Discharge: 03/18/24 Primary Care Physician: No Primary Care Phys Reason For Visit: CHEST PAIN Diagnosis Discharge Diagnosis (1) NSTEMI, initial episode of care: Status: Acute Code(s): I21.4 - Non-ST elevation (NSTEMI) myocardial infarction Plan This is 38-year-old gentleman came to ED with anginal quality chest pain left-sided with radiation to left arm and high troponin consistent with non-STEMI 1. Acute Non-STEMI: Patient is being admitted in ICU after Singing Messenger procedure.In ED patient had aspirin 325, IV heparin bolus, labetalol IV for uncontrolled BP. Discussed with the cost reduction engineer. Patient was found to have RCA blockage and its branch. PTCA/JULES to mid l RCA. Patient on IV Integrilin drip. On aspirin, Brilinta, carvedilol lisinopril and high intensity statin. 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 03/18: Yesterday blood pressure was high and was kept at 140-160 mmHg in order to avoid compromised vital organ perfusion. Patient was kept overnight on Integrilin drip. And JULES to mid RCA and thrombectomy to mid RCA and branch of RPDA fasting lipid profile, TSH were reviewed. Fasting profile shows triglyceride 193, LDL 65, total cholesterol 186, HDL 82. TSH 2.94 normal. primary school principal sinus rhythm. Blood pressure profile better systolic 130s to 140s today. Patient is discharged on baby aspirin, Brilinta, carvedilol, lisinopril and high intensity statin and nitro sublingual as needed anginal pain. Follow-up with cardiology Dr. Cj mohamud in 2 weeks. 2. Accelerated uncontrolled hypertension: Patient BP was systolic 200 and had labetalol in ED. Started on lisinopril 10 mg daily. Patient knows his blood pressure is uncontrolled. Currently his BP is systolic 140s. Monitor and titrate antihypertensive medication accordingly. 03/18: Mentioned above. Blood pressure is better controlled. 3. Obesity grade 2: BMI 36.4 kg/m?. Weight loss counseling done. 4. DVT prophylaxis, moderate to high risk: Lovenox 40 g subcu daily Advanced directive/living will: Patient does not have advanced directive or living will. Advised to prepare it with help of PCP. Currently full code. Discharge medication reconciliation done. Discharge follow-up instructions completed. Discharge process discussed with the patient and all questions were answered to patient's satisfaction. Follow with PCP in 1 to 2 weeks Total time spent, exact 35 minutes on discharge meds reconciliation, examination, coordination of care with nurses and ancillary staff, review of imaging and blood test and discussion with the patient on follow-up instructions. Laboratory Results 03/18/24 06:21: WBC 7.8, RBC 5.50, Hgb 16.4, Hct 49.7, MCV 90.4, MCH 29.8, MCHC 33.0, RDW Std Deviation 48.7 H, RDW Coeff of Zan 14.7 H, Plt Count 283, MPV 9.6, Sodium 137, Potassium 3.8, Chloride 110 H, Carbon Dioxide 23.0, Anion Gap 4 L, BUN 7, Creatinine 0.85, Estim Creat Clear Calc 146.86, Est GFR (MDRD) Af Amer 127, Est GFR (MDRD) Non-Af 105, BUN/Creatinine Ratio 8.2 L, Glucose 107 H, Calcium 8.3 L, Total Bilirubin 0.60, AST 96 H, ALT 51, Alkaline Phosphatase 75, Total Protein 6.9, Albumin 3.1 L, Globulin 3.8, Albumin/Globulin Ratio 0.8 L, Triglycerides 193, Cholesterol 186, LDL Cholesterol 65, VLDL Cholesterol 39, HDL Cholesterol 82, TSH 2.94 Medications at Discharge Home Medications amlodipine 5 mg tablet 5 mg PO DAILY 30 days #30 tabs 03/17/24 omeprazole 20 mg capsule,delayed release 20 mg PO DAILY 03/17/24 aspirin 81 mg tablet,delayed release 81 mg PO BREAKFAST 30 days #30 tabs 03/18/24 atorvastatin 40 mg tablet 40 mg PO QHS 1 month #30 tabs 03/18/24 carvedilol 12.5 mg tablet 12.5 mg PO BID 30 days #60 tabs 03/18/24 lisinopril 20 mg tablet 20 mg PO DAILY 1 month #30 tabs 03/18/24 nitroglycerin 0.4 mg sublingual tablet 0.4 mg sublingual Q5M PRN chest pain #30 tabs 03/18/24 ticagrelor 90 mg tablet (Brilinta) 90 mg PO BID #60 tabs 03/18/24 Physical Exam Narrative Seen and examined on day of discharge Physical exam General: Alert, Oriented x3, Cooperative HEENT: Atraumatic, PERRLA, EOMI, Normocephalic Oral: No Gingival or Mucosal Lesions/ Ulcerations Neck: Supple, No JVD, Negative Carotid Bruits Chest wall/Lungs: Air entry equal in bilateral lung bases. No crepitation/rhonchi. No hypoxia or tachypnea Cardiovascular: Regular rate, Regular Rhythm, Normal S1, Normal S2, No M/G/R Abdomen: Bowel Sounds Present, Soft, Non Tender, Non-Distended : No dysuria. No renal angle tenderness. No suprapubic tenderness. Extremities: No edema, Capillary Refill Less than 3 Seconds Skin: No rashes, No breakdown Musculoskeletal: No Tenderness to Palpation of Joints or Extremities Neurological: Cranial nerves II-XII grossly intact, DTR 2+/4. No acute focal neurological deficit. Psych/Mental Status: Normal Affect, Appropriate. Weight / BMI Weight Weight: 253 lb 15.56 oz Body Mass Index (BMI) 36.4 ABG / Lab / Microbiology Data 03/18/24 06:21 03/18/24 06:21 Laboratory: Laboratory Results - last 24 hr 03/18/24 06:21: WBC 7.8, RBC 5.50, Hgb 16.4, Hct 49.7, MCV 90.4, MCH 29.8, MCHC 33.0, RDW Std Deviation 48.7 H, RDW Coeff of Zan 14.7 H, Plt Count 283, MPV 9.6, Sodium 137, Potassium 3.8, Chloride 110 H, Carbon Dioxide 23.0, Anion Gap 4 L, BUN 7, Creatinine 0.85, Estim Creat Clear Calc 146.86, Est GFR (MDRD) Af Amer 127, Est GFR (MDRD) Non-Af 105, BUN/Creatinine Ratio 8.2 L, Glucose 107 H, Calcium 8.3 L, Total Bilirubin 0.60, AST 96 H, ALT 51, Alkaline Phosphatase 75, Total Protein 6.9, Albumin 3.1 L, Globulin 3.8, Albumin/Globulin Ratio 0.8 L, Triglycerides 193, Cholesterol 186, LDL Cholesterol 65, VLDL Cholesterol 39, HDL Cholesterol 82, TSH 2.94 Radiography Diagnostic Testing: Radiology Impression Echocardiogram 03/17/24 11:36 Interpretation Summary The estimated ejection fraction is 50-55 %. No evidence for diastolic dysfunction. Trivial mitral valve insufficiency. Ordering Physician: William Lugo Performed By: Constantine Daugherty RCS D/C Instructions Discharge Diet: Low fat / Low cholesterol and 2000 mg Sodium Diet Weight Bearing Status: Weight bearing as tolerated Call your doctor if you observe: Fever of 101 or Higher, Coldness, Increased Pain, Numbness or Tingling, Change in Color, Inability to urinate, Inability to have a bowel movement, Shortness of breath, Dizziness, Fainting spells, Swelling in the ankles, Chest pain, Prolonged hiccupping, Increased palpitations (irregular heartbeat) and Calf discomfort When: IN 2 WEEKS Meaningful Use Info Meaningful Use Meaningful Use Diagnoses (Choose all that apply): AMI AMI/Post PCI/Angioplasty Aspirin given w/in 24hrs of arrival?: Yes ASA at discharge?: Yes Statins at discharge?: Yes Rashad/ARB at discharge?: Yes Beta Yazan at discharge?: Yes Done w/ Acute SD measure.: Yes Ischemic Stroke Statin Dosing Therapy Reference: STATIN DOSE THERAPY REFERENCE: * Patients > 75 years receive moderate or high dose statin therapy. * Patients 75 years or YOUNGER should receive HIGH intensity statin dose unless contraindicated. You will be required to document reason for non-treatment if statin daily dose does not meet guidelines. HIGH DOSE STATIN THERAPY DAILY Atorvastatin > than or = to 40 mg Rosuvastatin > than or = to 20 mg Amlodipine + Atorvastatin > than or = to 2.5/40 mg Ezetimibe + Simvastatin 10/80 mg Simvastatin 80mg Discharge Plan Admission Admit Date/Time: 03/17/24 09:54 Primary Reason for Your Visit: NSTEMI Attending Provider: María Elena Asencio Primary Care Provider: Care Physician,No Primary Discharge Orders/Prescriptions Prescriptions: New amlodipine 5 mg tablet 5 mg PO DAILY 30 Days Qty: 30 2RF carvedilol 12.5 mg Tablet 12.5 mg PO BID 30 Days Qty: 60 2RF aspirin 81 mg Tablet,Delayed Release (Dr/Ec) 81 mg PO BREAKFAST 30 Days Qty: 30 4RF Brilinta 90 mg Tablet 90 mg PO BID Qty: 60 3RF lisinopril 20 mg tablet 20 mg PO DAILY 30 Days Qty: 30 3RF Rx Instructions: Hold for SBP less than 130 mmHg atorvastatin 40 mg tablet 40 mg PO QHS 30 Days Qty: 30 4RF nitroglycerin 0.4 mg tablet, sublingual 0.4 mg sublingual Q5M PRN (Reason: chest pain) Qty: 30 0RF Rx Instructions: do not exceed 3 doses per episode Continued omeprazole 20 mg capsule,delayed release(DR/EC) 20 mg PO DAILY Referrals / Follow Up: Cj Lubin MD [Med Staff - Active Staff] - Within 2 Weeks (nstemi) Skinny Chapman MD [Med Staff - Active Staff] - Care Physician,No Primary [Primary Care Provider] - Disposition Disposition (needs filled in before D/C Order can be placed): Home, Self Care Charges/Coding Visit Charges Inpatient E&M: 69115 Disch Hosp >30min
--- NOTE | 2024-03-18 13:31 | CASEMGMT ---
TC to [facility] pharmacy, cost of Brilinta is $540.99.
--- NOTE | 2024-03-18 13:35 | CASEMGMT ---
Addendum entered by Evelyn Norton 03/18/24 13:50: Pt states that he was given the Cardiac Rehab packet with information. This RN CM told the pt that they did not answer my phone call and if the pt DC before they call back then the pt may need to call to make appt. Pt and pt are agreeable to this plan. Telephone number provided. Original Note: Pt DC order placed. See Yamile FRANKLIN CM note regarding Brilinta cost. This RIGOBERTO BLAND provided savings card for pt. RIGOBERTO Ovalle CM told [facility] that the pt will be bringing a savings card for this. Pt RN states that the pt will need set up for OP Cardiac Rehab. Pt states to this RN CM that he would like me to set this up either past 5:30p or between 12:30 and 1:30p. TC to [facility] Cardiac Rehab to schedule appt. No answer at this time, VM left. Awaiting return call.
--- NOTE | 2024-03-18 15:02 | CL.I_ITS ---
Patient Name: [facility] Study Date: 03/17/2024 Performing: Nico Asencio MD Ht: 70 inches 177.8 cm : 1985 Wt: 248.3 lbs 112.5 kg Age: 38 Gender: male BSA: 2.29 PROCEDURE(S) PERFORMED DC01-(35643)LHC/COR/LV IC17-(22392)CORONARY MECHANICAL THROMBECTOMY (ANGIOJET,PENUMBRA) IC12-(89506/C9600)JULES W/WO PTCA, SINGLE CORONARY ARTERY IC02-(43072)PTCA, EACH ADD'L CORONARY ART, SAME MAJOR CLINICAL PROFILE AND CO-MORBIDITIES Indications: ACS <= 24 hrs, NSTEMI Heart Failure: None Stress/Imaging Stress/Image Study Performed: No CONCLUSIONS CAD as described. LVEF is 50 to 55% with regional wall motion abnormalities as described. No significant aortic stenosis or mitral regurgitation. Successful thrombectomy to small branch from the mid RPDA. Successful thrombectomy and drug-eluting stent to mid RCA. RECOMMENDATIONS DESCRIPTION OF PROCEDURE The patient arrived to the procedure lab. The risks and benefits of the procedure as well as a full description of our services here and lack of surgical backup were fully explained to the patient and/or their significant other prior to the catheterization. The Timeout was completed, verifying the correct patient and procedure. The patient's procedural site was prepped and draped in the usual fashion. Local anesthetic was given subcutaneously to right radial region with Lidocaine 2%. Using a modified Seldinger technique, arterial access was obtained via the right radial artery, a 6Fr sheath was inserted.. Left Coronary Artery selective angiography was performed in multiple views using a 5 Fr. JL3.5 catheter. Left Ventriculography was performed in DEJESUS projection using a 5 Fr. JR 4.0. LV to AO pullback pressures were then recorded. Right Coronary Artery selective angiography was then performed in multiple views using a 5 Fr. JR 4 catheterThe images were reviewed and options discussed. A decision was then made to proceed with an Intervention, IVUS or other adjunct procedure. JR 4.0 Guide catheter was inserted and engaged into the RCA. BMW Guide wire was advanced to the Right PDA. Priority One inserted Pass # 1 Priority One Removed 2 x 12 Emerge Balloon catheter was inserted. Balloon catheter was advanced across lesion in the posterior descending, mid. PTCA balloon inflated at 6 atms for 10 secs. PTCA balloon inflated at 6 atms for 10 secs. PTCA balloon inflated at 6 atms for 13 secs. Angiogram performed post balloon dilatation. 5 x 22 Dom [place] Drug Eluting stent was inserted. Drug Eluting stent was advanced across the lesion in the right coronary, mid. Angiogram performed pre stent deployment. Angiogram performed post stent deployment. Angiogram performed post stent deployment. The arterial sheath was pulled and a TR Band was applied for hemostasis 12cc air CORONARY ANGIOGRAPHY DOMINANCE: Right Dominant LEFT HEART ASSESSMENT Left Ventricular Ejection Fraction: by LV Gram 50-55 % Inferior Mid Hypokinesis - Severe LEFT MAIN: Mild luminal irregularities LEFT ANTERIOR DESCENDING ARTERY: Mild luminal irregularities CIRCUMFLEX ARTERY: Mild luminal irregularities RIGHT CORONARY ARTERY: MID RCA: 80 % Stenosis with significant thrombus burden. The vessel is ectatic with slow flow RT PDA: 100% stenosis involving a branch of the RPDA that takes off from the mid portion of the vessel. It appears to be occluded due to distal embolization from the mid RCA VALVE FINDINGS: No Aortic Valve Stenosis No Mitral Insufficiency INTERVENTION INFORMATION LESION SITE: RT PDA (Mid) Lesion Complexity: High/C, chronic total occlusion: No, lesion at bifurcation: No, thrombus present: Yes, lesion length: 12 mm, culprit lesion: Yes, Previously treated lesion: No Pre Stenosis: 100 % Pre intervention HIEN flow: 1 PROCEDURE: Thrombectomy, Balloon Angioplasty The lesion involves a small branch arising from the mid RPDA. Thrombectomy and balloon angioplasty was performed in the proximal portion of the vessel. The distal portion of the vessel appeared to be cut off due to thrombus. At this location the vessel was very small and did not appear to have a long segment of vessel distal to the occlusion. We felt that this is best treated with Integrilin overnight. Patient was not having any chest pain at this time. Post Stenosis: 0 % Post intervention HIEN flow: 2 Lesion Devices: Cordis 6 Fr JR4 100cm Guide Catheter Coffman .014 190cm BMW [place] Straight Penumbra Indigo Penumbra CAT Rx 140cm large lumen Terumo Priority One Aspiration Catheter Marcelino Sci EMERGE MR 2.00x12 BALLOON LESION SITE: RCA (Mid) Lesion Complexity: High/C, chronic total occlusion: No, lesion at bifurcation: No, thrombus present: Yes, lesion length: 20 mm, culprit lesion: Yes, Previously treated lesion: No Pre Stenosis: 80 % Pre intervention HIEN flow: 2 PROCEDURE: Thrombectomy Drug Eluting Stent Post Stenosis: 0 % Post intervention HIEN flow: 3 Lesion Devices: Cordis 6 Fr JR4 100cm Guide Catheter Coffman .014 190cm BMW [place] Straight Penumbra Indigo Penumbra CAT Rx 140cm large lumen Terumo Priority One Aspiration Catheter Medtronic 5.0 x 22 DOM FRONTIER JULES COMPLICATIONS No Complications PROCEDURE MEDICATIONS Fentanyl 50 mcg IV Versed 1 mg IV Oxygen: 2 L/min via nasal cannula Heparin given IA 03/17/2024 10:11:49 Heparin 2500 unit(s) IV 03/17/2024 10:23:48 Nitro 200 mcg IC 03/17/2024 10:59:36 Verapamil 2.5mg, Ntg 100mcgs, 3000 units of Heparin given IA 03/17/2024 10:11:49 SUMMARY OF HEMODYNAMIC DATA Time AIR REST ECG 09:59:03 AO 133/100 (117) SA 10:13:58 LV 157/2, 17 10:17:56 LV 157/-1, 5 10:18:02 LV 146/7, 26 10:18:47 LVp 143/8, 20 10:18:54 AOp 153/104 (126) 10:18:59 Signed By Nico Asencio MD On 03/18/2024 15:01:31 Nico Asencio MD
--- NOTE | 2024-03-19 10:47 | CASEMGMT ---
Pt calls into the ICU and states that the pharmacy would not accept the savings card provided and the pt would have to pay over 500$ and the pt did not want to do this. Pt is requesting Plavix to be sent to [facility] pharmacy at this time. This RN CM talked to Dr. Lugo and the MD states that this is OK and the MD sent an Rx for Plavix to [facility] pharmn[facility]. TC to pt and pt updated with this plan and states appreciation.
== END 2024-03-18 17:38 | disposition home or self-care (01) | DRG 322 ==
LOC: ED 09:19 → CLSP 10:02 → ICU 10:30
PROVIDERS: Emergency Medicine; Admitting Provider Internal Medicine; Emergency Provider Emergency Medicine; Visit Provider Specialist
DX: I21.4 Non-ST elevation (NSTEMI) myocardial infarction (principal); I16.1 Hypertensive emergency; E66.9 Obesity, unspecified; F17.210 Nicotine dependence, cigarettes, uncomplicated; I10 Essential (primary) hypertension; Z68.36 Body mass index [BMI] 36.0-36.9, adult
CPT/HCPCS: 36415; 71275; 74174; 80048; 80053; 80061; 83735; 84100; 84443; 84484; 85025; 85027; 85610; 85730; 92921; 92928; 92973; 93005; 93306; 93458; 97802; 99152; 99153; 99284; C1757; C1874; J7030; J7040; Q9957; Q9967; A4216; C1725; C1769; C1887; C1894; C9600; J1327